=== PATIENT | female | born 2000 | race Native Hawaiian/Other Pacific Islander ===

== ENCOUNTER 2022-11-05 11:50 | Emergency (ER) | payer OTHER ==
[2022-11-05 12:04] VITALS: BP 121/77
[2022-11-05] MEDS ORDERED: MAGIC MOUTHWASH 120 ML BOTTLE PO STA (12:34)
--- NOTE | 2022-11-05 12:38 | ED Physician Documentation ---
History of Present Illness - Stated complaint Stated Complaint: MOUTH PX - Chief complaint Chief Complaint: Heent - History obtained from History obtained from: Patient - Additonal information Additional information: Patient concerned she has a splinter On the roof of her mouth. She noticed it a couple days ago, not right posterior palate she has an area of irritation. She denies poking anything to the area, no other mouth ulcerations, no fever or chills, no cough or URI symptoms. She has not attempted any treatment for this. PD PAST MEDICAL HISTORY - Past Medical History Past Medical History: No - Past Surgical History Past Surgical History: No - Present Medications Home Medications: Ambulatory Orders Medication Instructions Recorded Confirmed Magic Mouthwash 30 ml PO Q4H #120 ml 11/05/22 - Allergies Allergies/Adverse Reactions: Allergies Allergy/AdvReac Type Severity Reaction Status Date / Time codeine Allergy Anaphylaxis Verified 11/05/22 11:59 - Social History Does the pt smoke?: No Smoking Status: Never smoker PD ED PE NORMAL - Vitals Vital signs reviewed: Yes - General General: Alert and oriented X 3, No acute distress, Well developed/nourished - HEENT HEENT: Atraumatic, Moist mucous membranes, Dentition benign, Other (There is a tiny 1 mm x 2 mm ulceration right posterior soft palate That is the site of her discomfort, there is not no palpable foreign body, there are no other ulcerations. No tonsillar exudate or swelling.) - Neck Neck: Supple, no meningeal sign, No adenopathy - Derm Derm: Normal color, Warm and dry, No rash Results - Vitals Vitals: Vital Signs - 24 hr 11/05/22 11:56 Temperature 36.8 C Heart Rate 83 Respiratory 20 Rate Blood Pressure 121/77 O2 Saturation 99 Oxygen O2 Source Room air PD Medical Decision Making - ED course Complexity details: considered differential, d/w patient ED course: 22-year-old female presents with a small laceration to the posterior soft palate as described in HPI. She thought perhaps it was a splinter, I think unlikely foreign body though this remains a possibility, versus viral ulceration. At I recommended trying Magic mouthwash for pain control, avoiding certain foods and advised that the palate should heal on its own within the next few days. If new or worsening symptoms, follow-up with PCP or return to the ER. Departure - Departure Disposition: 01 Home, Self Care Clinical Impression: Mouth ulcer Condition: Good Instructions: Sores Mouth Ch Prescriptions: Magic Mouthwash 30 ml PO Q4H #120 ml Comments: You have a small ulceration on the roof of the mouth. It should heal on its own in the next few days but I have given you some numbing mouth wash that can help with discomfort. Avoid irritating foods (sour, acidic (like tomatoes, citrus, balsamic, etc), and hard candies) until resolved.
== END 2022-11-05 13:08 | disposition home or self-care (01) ==
LOC: ED 11:50
DX: K13.79 Other lesions of oral mucosa (principal)
CPT/HCPCS: 99282; 99283; A9270